=== PATIENT | male | born 1935 | race Caucasian/White ===

== ENCOUNTER 2025-05-30 22:20 | Emergency (ER) | payer MEDICARE, OTHER ==
[~2025-05-30] VITALS: Ht 165.1 cm; Wt 85.7 kg
[2025-05-30] MEDS ORDERED: HYDROCODONE/APAP 5/325MG TABLET ONE (22:40)
[2025-05-30] MEDS ORDERED: TDAP [DIPH/PERTUSSIS/TET] 0.5 ML VIAL IM ONE (22:40)
[2025-05-30] MEDS: HYDROCODONE/APAP 5/325MG TABLET PO ONE (23:05)
[2025-05-30] MEDS: TDAP [DIPH/PERTUSSIS/TET] 0.5 ML VIAL IM ONE (23:14)
[2025-05-30 23:45] VITALS: BP 120/75; TEMP 98; O2SAT 98
== END 2025-05-30 23:46 | disposition home or self-care (01) ==
LOC: ER 22:27
DX: S13.4XXA Sprain of ligaments of cervical spine, initial encounter (principal); S39.012A Strain of muscle, fascia and tendon of lower back, initial encounter; S50.01XA Contusion of right elbow, initial encounter; S09.90XA Unspecified injury of head, initial encounter; I10 Essential (primary) hypertension; W19.XXXA Unspecified fall, initial encounter; Y93.89 Activity, other specified; Y92.89 Other specified places as the place of occurrence of the external cause; Y99.8 Other external cause status
CPT/HCPCS: 70450-TC; 72125-TC; 72131-TC; 73080-TC; 90715